=== PATIENT | female | born 1930 | race African-American/Black ===

== ENCOUNTER 2016-10-30 13:13 | Emergency (ER) | payer OTHER ==
--- NOTE | ~2016-10-30 | CR72 ---
[facility] A Service of [facility] & [facility] RADIOLOGY TEXT RESULTS PATIENT: CONNER SALEH LOCATION: [facility] : 31 UNIT #: [id number] AGE: [address]: Theo Maza DO SEX: F ORDER DR: [id number] [facility] [address] [place], [place] [address] [id number] E MR#: [id number] Acc #: [id number] NAME: CONNER SALEH. : 1930 SEX: F STUDY DATE/TIME: 10/30/2016 12:53 UNIT: [facility] ROOM: STUDY DESCRIPTION: CR Chest Single View Portable Attending Physician: Theo Maza D.O. Ordering Physician: Cory Watson M.D. Primary Care Physician: No Primary Care Physician MEDICAL IMAGING REPORT This report is preliminary unless electronic signature is present EXAM Portable chest. HISTORY Cough, wheeze and shortness of air for three days. COMPARISON 12/04/2013. FINDINGS Portable view of the chest was obtained. The heart size and vascularity are normal. The lungs are clear. The bones are unremarkable. IMPRESSION No active disease. Dictated by... Adolfo Wilson M.D. THIS IS AN ELECTRONICALLY VERIFIED REPORT Adolfo Wilson M.D. at 10/31/2016 3:07 PM FEL/gz TD: 10/31/2016 06:29 JOB #: [id number] MEDICAL IMAGING REPORT COPY
--- NOTE | ~2016-10-30 | EKG ---
PATIENT: CONNER SALEH UNIT #: [id number] Ventricular Rate: 53 BPM Atrial Rate: 53 BPM P-R Interval: 166 ms QRS Duration: 88 ms Q-T Interval: 466 ms QTC Calculation(Bezet): 437 ms P [place]: 29 degrees Calculated R [place]: -25 degrees Calculated T [place]: -24 degrees Diagnosis Line: Sinus bradycardia Diagnosis Line: Nonspecific T wave abnormality Diagnosis Line: Abnormal ECG Diagnosis Line: When compared with ECG of 04-DEC-2013 15:11, Diagnosis Line: Vent. rate has decreased BY 46 BPM Diagnosis Line: T wave inversion no longer evident in Anterior Diagnosis Line: leads Diagnosis Line: Confirmed by JEREMÍAS SCHAFER MD ([id number]) on Diagnosis Line: 10/30/2016 8:12:06 PM INTERPRETING : JOSE MIGUEL
[~2016-10-30 13:13] MED LIST: BAYER CHEWABLE81 MG PO; DONEPEZIL HCL10 MG PO; HYDROXYZINE HCL25 M1 PO; KCL PO; KEFLEX500 M1 PO; LASIX PO; LOVASTATIN20 MG PO; MAG-OX 400400 M1 PO; MATZIM LA360 MG PO; METOPROLOL TAR25 MG PO; NITROQUICK0.4 MG SL; PANTOPRAZOLE SO40 MG PO; PRINIVIL10 MG PO; TOVIAZ4 MG PO; ZOCOR10 MG PO
[2016-10-30 13:38] LABS: BASOPHIL% 0.5 % (0-2.5); EOSINOPHIL% 0.2 % (0.0-7.0); HEMOGLOBIN 14.1 gm/dL (12.0-16.0); LYMPHOCYTE# 0.9 X10e3 (1.0-3.5); MEAN CELL VOLUME 92.9 FL (83-96); MEAN CORPUSCULAR HEMOGLOBIN 30.5 PG (28-34); MEAN CORPUSCULAR HGB CONC 32.8 g/dL (30-36); MEAN PLATELET VOLUME 11.8 FL (6.5-11.5); MONOCYTE# 0.6 X10e3 (0-1.0); MONOCYTE% 11.6 % (3.0-12.0); NEUTROPHIL# 3.6 X10e3 (1.5-7.1); NEUTROPHIL% 69.7 % (40-75); PLATELET COUNT 61 X10e3 (140-420); RED BLOOD COUNT 4.63 X10e (3.90-5.30); RED CELL DISTRIBUTION WIDTH 13.3 % (11.0-15.5); WHITE BLOOD COUNT 5.2 X10e3 (4.0-10.5)
[2016-10-30 13:44] LABS: ALBUMIN SERUM 3.5 g/dL (3.5-5.0); BILIRUBIN, DIRECT 0.1 mg/dL (0.0-0.2); BILIRUBIN,TOTAL 1.1 mg/dL (0.2-2.0); BUN/CREATININE RATIO 14.28; CALCIUM SERUM 8.5 mg/dL (8.4-10.2); CREATININE SERUM 1.4 mg/dL (0.6-1.4); POTASSIUM 4.1 mmol/L (3.5-5.1)
[2016-10-30 13:46] LABS: DIFF IND YES
[2016-10-30 14:07] LABS: URINE SOURCE CLEAN CATCH
[2016-10-30 14:17] LABS: URINE APPEARANCE CLEAR; URINE BILIRUBIN NEG (NEG); URINE BLOOD 2+ (NEG); URINE COLOR YELLOW; URINE GLUCOSE NEG (NEG); URINE KETONE NEG (NEG); URINE LEUKOCYTE ESTERASE NEG (NEG); URINE NITRATE NEG (NEG); URINE PROTEIN NEG (NEG); URINE SPECIFIC GRAVITY 1.012 (1.003-1.035); URINE UROBILINOGEN 0.2 MG/DL (NEG)
[2016-10-30 14:20] LABS: CULTURE INDICATED? YES; U HYALINE CASTS AUWI 0-2 /[LPF]; URINE BACTERIA AUWI 1+ (NEGATIVE); URINE SQUAMOUS EPITHELIAL CELL NONE SEEN /[HPF]; UWBCS1 AUWI 0-2 (0-5)
[2016-10-30 14:47] LABS: POC - CKMB <1.0 ng/mL (0.0-7.9); POC - TROPONIN <0.05 ng/mL (<=0.05)
[2016-10-30 14:52] LABS: INFLUENZA A POS (NEG); INFLUENZA B NEG (NEG)
[2016-10-30 14:57] LABS: POC - CKMB 1.7 ng/mL (0.0-7.9); POC - TROPONIN <0.05 ng/mL (<=0.05)
[2016-10-30 15:11] LABS: ANISOCYTOSIS SL; PLATELET ESTIMATE DECREASED (NORMAL)
== END 2016-10-30 16:40 | disposition home or self-care (01) ==
LOC: CED 13:13
PROVIDERS: Emergency Medicine
DX: J10.1 Influenza due to other identified influenza virus with other respiratory manifestations (principal); J06.9 Acute upper respiratory infection, unspecified; I10 Essential (primary) hypertension; J44.9 Chronic obstructive pulmonary disease, unspecified; Z87.891 Personal history of nicotine dependence; Z79.899 Other long term (current) drug therapy
CPT/HCPCS: 36415; 71010; 80048; 80076; 81003; 82553; 84484; 85025; 87040; 87086; 87804; 93005; 94640; 96374; 99284; J2930

== ENCOUNTER → 2017-02-21 | Outpatient (CLI) | payer OTHER ==
[~2017-02-21] MED LIST changes: +AMIODARONE HCL200 MG PO; +ASPIRIN81 M2 PO; +LISINOPRIL PO; +LOPRESSOR PO; +MAG-OX 400400 MG PO; +MEMANTINE HCL10 MG PO; +MYRBETRIQ50 MG PO; +PATIENT'S PHARMACY; +REMERON PO; +VITAMIN D250000 UNIT PO; +ZOCOR PO
--- NOTE | ~2017-02-21 | MR18 ---
[facility] A Service of [facility] & [facility] RADIOLOGY TEXT RESULTS PATIENT: CONNER SALEH LOCATION: [facility] : 31 UNIT #: [id number] AGE: [address]: Jean Weaver MD SEX: F ORDER DR: [id number] [facility] [address] [place], [place] [address] [id number] O MR#: [id number] Acc #: [id number] NAME: CONNER SALEH : 1930 SEX: F STUDY DATE/TIME: 02/21/2017 14:16 UNIT: [facility] ROOM: STUDY DESCRIPTION: MR Brain Wo Contrast Attending Physician: Jean Weaver M.D. Referring Physician: Jean Weaver M.D. Ordering Physician: Jean Weaver M.D. Primary Care Physician: Jean Weaver M.D. MRI CENTER REPORT This report is preliminary unless electronic signature is present. EXAM MRI of the brain without HISTORY Dementia. No history of cancer or brain surgery. Patient has had dimension for 10 years. 86-year-old female. No other symptoms. History of hypertension. No trauma indicated. TECHNIQUE MRI of the brain was performed without contrast using routine 1.5-T imaging technique. COMPARISON STUDIES There is no prior imaging of the brain. FINDINGS There is a tiny focus of restricted diffusion seen at the posterior-superior left cerebellar hemisphere, most consistent with a tiny recent small vessel ischemic insult. It is a linear, about 7 mm in length and about 3-4 mm in width. There is no MRI evidence for intracranial hemorrhage. There is no appreciable mass effect. There is no extraaxial fluid collection. Motion-limiting sequences are utilized. The major intracranial flow voids are maintained. There is ipmnalie-ix-fxbjtc white matter signal abnormality, most confluent in the deep to periventricular white matter and there are apw-stvvqjas-dp-count small areas of signal abnormality in the bilateral basal ganglia and thalami which could be a prominent perivascular spaces and/or chronic lacunes. Brainstem signal intensity is essentially within normal limits. There is no intracranial mass effect or extraaxial fluid collection. There is no particular pattern of atrophy. 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 Please correlate further with the clinical STS. [facility] A Service of [facility] & [facility] RADIOLOGY TEXT RESULTS PATIENT: CONNER SALEH LOCATION: [facility] : 31 UNIT #: [id number] AGE: [address]: Jean Weaver MD SEX: F ORDER DR: findings as well. There are degenerative changes in the visualized upper cervical spine. Visualized paranasal sinuses and mastoid air cells are clear. There is a mucous retention cyst or polyp in the left maxillary antrum. IMPRESSION 1. There is a punctate focus of restricted diffusion seen at the periphery of the left superior-posterior cerebellar hemisphere, most likely a tiny recent small vessel insult. This is superimposed upon a background of fairly extensive, likely preexisting sequelae of small vessel disease, particularly given history of hypertension. 2. There is no intracranial mass effect or extraaxial fluid collection. There is nothing to suggest hydrocephalus. For reasons discussed above, most likely etiology of the patient's dementia is felt to be multi-infarct but the please correlate further with clinical findings and see full discussion above. STAT * RESULT Dictated by... Mare Walker M.D. THIS IS AN ELECTRONICALLY VERIFIED REPORT Mare Walker M.D. at 02/21/2017 5:34 PM BONIFACIO/frederick TD: 02/21/2017 16:13 JOB #: [id number] MRI CENTER REPORT Page 1 of 1 COPY
== END | disposition home or self-care (01) ==
LOC: CMRI 13:45
DX: F03.90 Unspecified dementia, unspecified severity, without behavioral disturbance, psychotic disturbance, mood disturbance, and anxiety (principal); R93.0 Abnormal findings on diagnostic imaging of skull and head, not elsewhere classified
CPT/HCPCS: 70551

== ENCOUNTER → 2017-03-09 | Outpatient (CLI) | payer OTHER ==
--- NOTE | ~2017-03-09 | US37 ---
[facility] A Service of [facility] & [facility] RADIOLOGY TEXT RESULTS PATIENT: CONNER SALEH LOCATION: [facility] : 31 UNIT #: [id number] AGE: [address]: Braxton Castro MD SEX: F ORDER DR: [id number] [place] [address] [place], [place] [address] [id number] O MR#: [id number] Acc #: [id number] NAME: CONNER SALEH. : 1930 SEX: F STUDY DATE/TIME: 03/09/2017 14:07 UNIT: [facility] ROOM: STUDY DESCRIPTION: US Carotid W/Doppler Bilateral Attending Physician: Braxton Castro Jr., M.D. Referring Physician: Braxton Castro Jr., M.D. Ordering Physician: Braxton Castro Jr., M.D. Primary Care Physician: Braxton Castro Jr., M.D. MEDICAL IMAGING REPORT This report is preliminary unless electronic signature is present EXAM Carotid duplex scan date of examination 03/09/2017 HISTORY Carotid stenosis. History of stroke. FINDINGS The right common carotid artery has a small amount of heterogeneous plaque which extends up in the proximal internal and external carotid arteries. Peak systolic velocity in the mid right internal carotid artery is 47 cm/sec with an end diastolic velocity of 23 cm/sec. The ICA/CCA ratio on the right is 1.0. Peak systolic velocity in the right external carotid artery is 32 cm/sec. The right vertebral artery is patent with antegrade flow. The left common carotid artery has a small amount of heterogeneous plaque which extends up in the proximal internal and external carotid arteries. Peak systolic velocity in the distal left internal carotid artery is 37 cm/sec with an end diastolic velocity of 18 cm/sec. The ICA/CCA ratio on the left is 0.7. Peak systolic velocity in the left external carotid artery is 21 cm/sec. The left vertebral artery is patent with antegrade flow. IMPRESSION Small amount of plaque, but no significant stenosis (less than 50%) in the internal and external carotid arteries bilaterally. Patent vertebral arteries bilaterally with antegrade flow. Dictated by... Carter Bowman M.D. [facility] A Service of [facility] & [facility] RADIOLOGY TEXT RESULTS PATIENT: CONNER SALEH LOCATION: [facility] #: [id number] : 31 UNIT #: [id number] AGE: [address]: Braxton Castro MD SEX: F ORDER DR: THIS IS AN ELECTRONICALLY VERIFIED REPORT Carter Bowman M.D. at 03/11/2017 7:28 AM SBS/rnr TD: 03/10/2017 01:12 JOB #: [id number] MEDICAL IMAGING REPORT Page 1 of 1 COPY
== END | disposition home or self-care (01) ==
LOC: CNIV 10:30
DX: R26.89 Other abnormalities of gait and mobility (principal); I65.23 Occlusion and stenosis of bilateral carotid arteries; Z86.73 Personal history of transient ischemic attack (TIA), and cerebral infarction without residual deficits
CPT/HCPCS: 93880

== ENCOUNTER 2017-03-10 11:02 | Inpatient (IN) | payer OTHER ==
[~2017-03-10] VITALS: Ht 152.4 cm; Wt 76.0 kg
--- NOTE | ~2017-03-10 | EKG ---
PATIENT: CONNER SALEH UNIT #: [id number] Ventricular Rate: 124 BPM Atrial Rate: 122 BPM QRS Duration: 106 ms Q-T Interval: 338 ms QTC Calculation(Bezet): 485 ms Calculated R [place]: -31 degrees Calculated T [place]: 155 degrees Diagnosis Line: Accelerated Junctional rhythm Diagnosis Line: Left axis deviation Diagnosis Line: Minimal voltage criteria for LVH, may be normal Diagnosis Line: variant Diagnosis Line: ST and T wave abnormality, consider lateral ischemia Diagnosis Line: Abnormal ECG Diagnosis Line: When compared with ECG of 30-OCT-2016 13:03, Diagnosis Line: Junctional rhythm has replaced Sinus rhythm Diagnosis Line: Vent. rate has increased BY 71 BPM Diagnosis Line: T wave inversion now evident in Lateral leads Diagnosis Line: Confirmed by SMITHA PHILLIPS MD ([id number]) on Diagnosis Line: 03/11/2017 7:32:43 AM INTERPRETING MD: JACQUELINE CHU
--- NOTE | ~2017-03-10 | HP ---
Unit #: [id number] #: [id number] Patient: CONNER SALEH [id number] [address] [place], [place] [address] [id number] I MR#: [id number] NAME: CONNER SALEH. ROOM: 557 Age: 86 Sex: F Admission Date: 03/10/2017 : 1930 Attending Physician: Dalia Medel M.D. Primary Care Physician: Jean Weaver M.D. HISTORY AND PHYSICAL HISTORY OF PRESENT ILLNESS This is an 86-year-old female who is known to have dementia and is a poor historian. Information has been obtained from the patient and her friend who cares for her who is also a poor historian. According to the patient, she has a report of loss of appetite for two to three days where she has no desire to eat. Her friend who cares for her states that she went to see her primary care physician and tests were ordered including an MRI. She also was ordered to have an echocardiogram. While in the echocardiogram, she was noted to have an elevated heart rate and was sent to the emergency room for evaluation. On arrival, an EKG was obtained and she was found to have an accelerated heart rate of 120 beats per minute. Upon review of the EKG, she was noted to have possible paroxysmal supraventricular tachycardia versus atrial fibrillation. She was hypotensive with blood pressure of 94/64 mmHg that was treated with IV saline bolus. The patient said she has no symptoms of chest pain, dyspnea, palpitations, or dizziness. She apparently lives a sedentary lifestyle and only walks around the house on occasion. She mostly sits and watches TV all day. Her friend states she does not drink enough fluids. Her electrolytes are within normal limits. Creatinine is 1.6. In October 2013, creatinine was 1.4. TSH is normal. She has no enzyme elevation to suggest an acute event. She has had no prior cardiac history or testing. She was seen by our group in 2013 for atrial tachycardia. PAST MEDICAL HISTORY 1. A 2D echocardiogram on December 05, 2013, shows an ejection fraction of 60% with mild mitral regurgitation, mild tricuspid regurgitation, and mild aortic regurgitation. 2. Atrial tachycardia. 3. Hypertension. 4. Hyperlipidemia. 5. Gastroesophageal reflux disease. 6. Osteoarthritis. 7. Former smoker. 8. Reformed ETOH abuse. PAST SURGICAL HISTORY Appendectomy. SOCIAL HISTORY The patient lives with and is cared for by her friend of 40 years. She lives a sedentary lifestyle. She states she quit smoking in 1963. She apparently has a remote history of alcohol use. No illicit drug use. Unit #: [id number] #: [id number] Patient: CONNER SALEH FAMILY HISTORY Noncontributory. ALLERGIES No known drug allergies. HOME MEDICATIONS 1. Aspirin 81 mg daily. 2. Aricept 10 mg daily. 3. Lisinopril 10 mg daily. 4. Magnesium oxide 400 mg b.i.d. 5. Namenda 10 mg daily. 6. Lopressor 12.5 mg b.i.d. 7. Remeron 7.5 mg at bedtime. 8. Myrbetriq 50 mg daily. 9. Potassium chloride 20 mEq daily. 10. Zocor 10 mg daily. 11. Vitamin D2 at 50,000 units weekly. 12. Furosemide 40 mg daily. REVIEW OF SYSTEMS CONSTITUTIONAL: Negative for fever or chills. Has no weight gain or weight loss. Decrease in appetite. HEENT: No headache, hearing or vision changes, or difficulty with swallowing. Denies dizziness. CARDIOVASCULAR: No symptoms of angina. Denies palpitations. No paroxysmal nocturnal dyspnea or orthopnea. No syncope or near syncope. RESPIRATORY: Negative for dyspnea, cough, or hemoptysis. GASTROINTESTINAL: No abdominal pain, nausea, or vomiting. No constipation or melena. EXTREMITIES: Negative for lower extremity edema. PHYSICAL EXAMINATION VITAL SIGNS: Blood pressure 100/74, heart rate 128, and temperature 97.9. GENERAL: This is a pleasant, mildly obese, 86-year-old female who is in no acute respiratory distress. NEUROLOGIC: She is awake, alert, and oriented. No focal weakness. NECK: Trachea is midline. No thyromegaly or lymphadenopathy. No jugular venous distention. HEART: S1 and S2 heart sounds are normal. No murmurs, rubs, or clicks. Regular rate and rhythm that is tachycardic. LUNGS: Clear without rales, rhonchi, or wheezing. ABDOMEN: Soft and nontender with bowel sounds present. EXTREMITIES: Without leg edema. SKIN: Warm and dry. DIAGNOSTIC STUDIES LABORATORY: Glucose 120, BUN 24, creatinine 1.6, sodium 143, potassium 4, and magnesium 2. TSH 1.36. CK-MB 3.5 and troponin less than 0.05. White count 8, hemoglobin 14.7, hematocrit 46.4, and platelet count is 122,000. IMAGING: MRI of the brain on February 21 shows a tiny recent small vessel insult to the left superior-posterior cerebellar hemisphere. Ultrasound of bilateral carotids reveals a small amount of plaque but no significant stenosis (less than 50%) in the internal and external carotid arteries bilaterally. Vertebral arteries are patent bilaterally. Unit #: [id number] #: [id number] Patient: CONNER SALEH CARDIOLOGY: EKG shows paroxysmal supraventricular tachycardia, rate 125 beats per minute. There is T wave inversion in lateral leads V5, V6, I, and AVL. Left axis deviation. IMPRESSION 1. Paroxysmal supraventricular tachycardia versus atrial fibrillation with rapid ventricular response. 2. Preserved left ventricular systolic function with an ejection fraction of 60%. 3. Hypotension with history of hypertension. 4. Hyperlipidemia. 5. Dementia. 6. Chronic kidney disease stage 3. PLAN 1. The patient's EKG denotes paroxysmal supraventricular tachycardia versus atrial fibrillation with rapid ventricular response. Will start the patient on amiodarone drip to attempt to convert to normal sinus rhythm. 2. Discontinue lisinopril and beta lester because of hypotension. 3. Continue to monitor serial cardiac enzymes and troponin to rule out myocardial infarction. 4. A 2D echocardiogram is done to reevaluate for left ventricular systolic dysfunction and for valvular heart disease. 5. Start the patient on IV fluids because of hypotension. 6. Lipid profile will be obtained. 7. TSH is normal. 8. Monitor renal function. 9. Will have Physical Therapy and Occupational Therapy to see the patient. 1. Dictated by Charles Jones A.P.R.N. for Tiago Dutta TD: 03/10/2017 18:12 JOB #: [id number] HISTORY AND PHYSICAL Page 1 of 1 X Charles Jones APRN HISTORY AND PHYSICAL
--- NOTE | ~2017-03-10 | EKG ---
PATIENT: CONNER SALEH UNIT #: [id number] Ventricular Rate: 57 BPM Atrial Rate: 57 BPM P-R Interval: 202 ms QRS Duration: 96 ms Q-T Interval: 524 ms QTC Calculation(Bezet): 510 ms P [place]: 45 degrees Calculated R [place]: -16 degrees Calculated T [place]: -22 degrees Diagnosis Line: Sinus bradycardia Diagnosis Line: Nonspecific T wave abnormality Diagnosis Line: Prolonged QT Diagnosis Line: Abnormal ECG Diagnosis Line: When compared with ECG of 10-MAR-2017 11:41, Diagnosis Line: (unconfirmed) Diagnosis Line: Rhythm now sinus Diagnosis Line: Vent. rate has decreased BY 67 BPM Diagnosis Line: T wave inversion no longer evident in Lateral Diagnosis Line: leads Diagnosis Line: Confirmed by JEREMÍAS SCHAFER MD ([id number]) on Diagnosis Line: 03/11/2017 8:21:00 AM INTERPRETING MD: JOSE MIGUEL
--- NOTE | ~2017-03-10 | DS ---
Unit #: [id number] #: [id number] Patient: CONNER SALEH [id number] [address] [place], [place] [address] [id number] I MR#: [id number] NAME: CONNER SALEH. ROOM: 55 Age: 86 Sex: F Admission Date: 03/10/2017 : 1930 Discharge Date: 03/11/2017 Attending Physician: Roma Elliott M.D. Primary Care Physician: Jean Weaver M.D. DISCHARGE SUMMARY DISCHARGE DIAGNOSES 1. Paroxysmal supraventricular tachycardia converted to normal sinus rhythm. 2. 2D echocardiogram on 03/10/2017 showed an ejection fraction of 55% to 60% with mild concentric left ventricular hypertrophy. Bubble study shows no shunt across the interatrial septum, mild aortic regurgitation, hvfg-te-ecnayfmy mitral regurgitation, gqxr-eq-mbcgweep tricuspid regurgitation, mild pulmonic valvular regurgitation. Right ventricular systolic pressure of 23 mmHg. (The patient was tachycardic on examination. 3. Hypotension, resolved. 4. History of hypertension. 5. Hyperlipidemia. 6. Dementia. DISCHARGE MEDICATIONS Aspirin 81 mg daily, potassium chloride 20 mEq daily, vitamin D 50,000 units every week, Myrbetriq 50 mg daily, MAGnesium-Oxide 400 mg b.i.d., Remeron 7.5 mg q.h.s., Namenda 10 mg daily, Aricept 10 mg daily, simvastatin 10 mg daily, amiodarone 200 mg p.o. b.i.d. x7 days then 200 mg daily. HOSPITAL COURSE This is an 86-year-old female, who was brought into the emergency room after being found to have a rapid heart rate while having an echocardiogram done. She had EKG that was felt to be paroxysmal supraventricular tachycardia versus atrial fibrillation with rapid ventricular response. She was started on amiodarone drip. She was hypotensive with a blood pressure in the 90s. Lisinopril and carvedilol were discontinued. She was ruled out for an acute myocardial infarction with negative cardiac enzymes and troponin. Her TSH was normal at 1.36. She denied any symptoms of angina. Her only complaint was loss of appetite. IV fluids were started. The patient converted to normal sinus rhythm. Repeat EKG showed no acute ischemic changes. IV fluids were discontinued. The patient was allowed to ambulate in the hallway with physical therapy and they felt that she was at her baseline. They suggested that she use a rolling walker at home, which will be provided prior to discharge. Her blood pressure improved. She is stable for discharge today. PHYSICAL EXAMINATION VITAL SIGNS: Blood pressure 111/71, heart rate 57. Unit #: [id number] #: [id number] Patient: CONNER SALEH CHEST: Clear to auscultation. HEART: S1, S2. Regular rate and rhythm. ABDOMEN: Soft and nontender with bowel sounds are present. EXTREMITIES: Without leg edema. DIAGNOSTIC STUDIES LABORATORY RESULTS: Troponin 0.03. Cholesterol 150, triglycerides 116, LDL 82, HDL 45. TSH 1.36. White count 9.9, hemoglobin 13.7, hematocrit 43.3, and platelet count 111. CARDIOVASCULAR STUDIES: EKG shows sinus bradycardia rate of 57 beats per minute with no acute ischemic changes. QTc 510 msec. DISCHARGE INSTRUCTIONS 1. The patient will be discharged home today. 2. Follow up with Dr. De on 04/28/2017 at 2 p.m. Follow up with primary care physician in 1 week. 3. The patient will take amiodarone 200 mg b.i.d. for week and then 200 mg daily. This has been discussed with the patient's significant other in detail. Amiodarone drip was discontinued. 4. The patient has been provided a rolling walker for home use for the patient's safety. 5. Lisinopril and metoprolol have been discontinued, because of hypotension which has improved. Dictated by... Yamila Mensah/lorelei TD: 03/14/2017 01:04 JOB #: [id number] CC: Tiago Schwab M.D. DISCHARGE SUMMARY Page 1 of 1 X Charles Jones APRN X DISCHARGE SUMMARY
--- NOTE | ~2017-03-10 | CR72 ---
[facility] A Service of [facility] & [facility] RADIOLOGY TEXT RESULTS PATIENT: CONNER SALEH LOCATION: [place] [address] : [birth year] UNIT #: [id number] AGE: [address]: Roma Elliott MD SEX: F ORDER DR: [id number] [facility] [address] [place], [place] [address] [id number] I MR#: [id number] Acc #: [id number] NAME: CONNER SALEH. : 1930 SEX: F [facility]UD[facility] DATE[facility]TIME: [facility] [place] STUDY DESCRIPTION: CR Chest Single View Portable Attending Physician: Dalia Medel M.D. Ordering Physician: Williams Zaragoza M.D. Primary Care Physician: Jean Weaver M.D. MEDICAL IMAGING REPORT This report is preliminary unless electronic signature is present EXAM Chest portable 03/10/2017 1137 hours HISTORY 86-year-old woman with rapid heart rate during endoscopy today, shortness of air today. History of hypertension. COMPARISON 10/30/2016 FINDINGS Portable upright chest demonstrates stable mild cardiomegaly and tortuous atherosclerotic aorta. The lungs are well expanded and clear of acute densities. There is no pleural effusion or pneumothorax. Stable degenerative changes of the shoulders. IMPRESSION Stable mild cardiomegaly and tortuous aorta. The pulmonary vascularity is normal. The lungs remain clear. There is no effusion or pneumothorax. Dictated by... Paula Tierney M.D. THIS IS AN ELECTRONICALLY VERIFIED REPORT Paual Tierney M.D. at 03/11/2017 8:53 AM SMM/linwood TD: 03/10/2017 18:04 JOB #: [id number] MEDICAL IMAGING REPORT Page 1 of 1 COPY
[~2017-03-10 11:02] MED LIST changes: -AMIODARONE HCL200 MG PO; -ASPIRIN81 M2 PO; -LISINOPRIL PO; -LOPRESSOR PO; -MAG-OX 400400 MG PO; -MEMANTINE HCL10 MG PO; -MYRBETRIQ50 MG PO; -PATIENT'S PHARMACY; -REMERON PO; -VITAMIN D250000 UNIT PO; -ZOCOR PO
[2017-03-10] MEDS ORDERED: MEMANTINE HCL10 MG PO (11:40)
[2017-03-10] MEDS ORDERED: ASPIRIN81 M2 PO (11:40)
[2017-03-10] MEDS ORDERED: LISINOPRIL PO (11:40)
[2017-03-10] MEDS ORDERED: DONEPEZIL HCL10 MG PO (11:40)
[2017-03-10] MEDS ORDERED: MAG-OX 400400 MG PO (11:40)
[2017-03-10] MEDS ORDERED: REMERON PO (11:42)
[2017-03-10] MEDS ORDERED: LOPRESSOR PO (11:42)
[2017-03-10] MEDS ORDERED: ZOCOR PO (11:42)
[2017-03-10] MEDS ORDERED: MYRBETRIQ50 MG PO (11:42)
[2017-03-10] MEDS ORDERED: KCL PO (11:42)
[2017-03-10] MEDS ORDERED: VITAMIN D250000 UNIT PO (11:43)
[2017-03-10] MEDS ORDERED: PATIENT'S PHARMACY (11:44)
[2017-03-10 11:50] LABS: POC - CKMB 3.8 ng/mL (0.0-7.9); POC - TROPONIN <0.05 ng/mL (<=0.05)
[2017-03-10 11:51] LABS: BASOPHIL# 0.1 X10e3 (0-0.3); BASOPHIL% 0.6 % (0-2.5); EOSINOPHIL# 0.2 X10e3 (0-0.7); EOSINOPHIL% 2.3 % (0.0-7.0); HEMATOCRIT 46.4 % (35.0-45.0); HEMOGLOBIN 14.7 gm/dL (12.0-16.0); LYMPHOCYTE# 1.3 X10e3 (1.0-3.5); LYMPHOCYTE% 16.7 % (17.0-45.0); MEAN CELL VOLUME 93.7 FL (83-96); MEAN CORPUSCULAR HEMOGLOBIN 29.7 PG (28-34); MEAN CORPUSCULAR HGB CONC 31.7 g/dL (30-36); MEAN PLATELET VOLUME 11.7 FL (6.5-11.5); MONOCYTE# 0.6 X10e3 (0-1.0); MONOCYTE% 7.4 % (3.0-12.0); NEUTROPHIL# 5.9 X10e3 (1.5-7.1); PLATELET COUNT 122 X10e3 (140-420); RED BLOOD COUNT 4.95 X10e (3.90-5.30); RED CELL DISTRIBUTION WIDTH 13.6 % (11.0-15.5)
[2017-03-10 11:54] LABS: DIFF IND NO
[2017-03-10 12:04] LABS: PARTIAL THROMBOPLASTIN TIME 26.2 SECONDS (23.5-31.3)
[2017-03-10 12:11] LABS: CALCIUM SERUM 9.1 mg/dL (8.4-10.2); CREATININE SERUM 1.6 mg/dL (0.6-1.4); GLOM FILT RATE Estimated 33.7 mL/min (>60); MAGNESIUM 2.3 mg/dL (1.6-3.0)
[2017-03-10 13:51] LABS: POC - CKMB 3.5 ng/mL (0.0-7.9); POC - TROPONIN <0.05 ng/mL (<=0.05)
[2017-03-10 19:49] LABS: %MB 5.1 % (0.0-4.0)
[2017-03-11 03:18] LABS: %MB 6.1 % (0.0-4.0); MB 6.6 ng/ml
[2017-03-11 08:01] LABS: HEMATOCRIT 43.3 % (35.0-45.0); HEMOGLOBIN 13.7 gm/dL (12.0-16.0); MEAN CELL VOLUME 94.1 FL (83-96); MEAN CORPUSCULAR HEMOGLOBIN 29.8 PG (28-34); MEAN CORPUSCULAR HGB CONC 31.7 g/dL (30-36); MEAN PLATELET VOLUME 10.6 FL (6.5-11.5); RED BLOOD COUNT 4.6 X10e (3.90-5.30); WHITE BLOOD COUNT 9.9 X10e3 (4.0-10.5)
[2017-03-11 09:07] LABS: BUN/CREATININE RATIO 16.36; CALCIUM SERUM 8.4 mg/dL (8.4-10.2); CREATININE SERUM 1.1 mg/dL (0.6-1.4); MAGNESIUM 2.3 mg/dL (1.6-3.0); POTASSIUM 4.4 mmol/L (3.5-5.1)
[2017-03-11 09:20] LABS: %MB 3.6 % (0.0-4.0); MB 6.9 ng/ml
[2017-03-11] MEDS ORDERED: AMIODARONE HCL200 MG PO ×2 (11:49→11:50)
== END 2017-03-11 12:56 | disposition home health service (06) | DRG 308 ==
LOC: CED 11:02 → CEDOF 13:40 → CED 15:48 → CEDOF 15:48 → C5B 18:04
PROVIDERS: Emergency Medicine; Internal Medicine Cardiovascular Disease
PROC: B246YZZ Ultrasonography of Right and Left Heart using Other Contrast (ICD-10-PCS; principal; 2017-03-10)
DX: I47.1 Supraventricular tachycardia (principal); I63.8 Other cerebral infarction; I95.9 Hypotension, unspecified; I48.91 Unspecified atrial fibrillation; N18.3 Chronic kidney disease, stage 3 (moderate); F01.50 Vascular dementia, unspecified severity, without behavioral disturbance, psychotic disturbance, mood disturbance, and anxiety; I08.3 Combined rheumatic disorders of mitral, aortic and tricuspid valves; E78.5 Hyperlipidemia, unspecified; I12.9 Hypertensive chronic kidney disease with stage 1 through stage 4 chronic kidney disease, or unspecified chronic kidney disease; K21.9 Gastro-esophageal reflux disease without esophagitis; Z87.891 Personal history of nicotine dependence; F10.21 Alcohol dependence, in remission; M19.90 Unspecified osteoarthritis, unspecified site; Z90.49 Acquired absence of other specified parts of digestive tract; Z79.82 Long term (current) use of aspirin
CPT/HCPCS: 36415; 71010; 80048; 80061; 82550; 82553; 83735; 84443; 84484; 85025; 85027; 85610; 85730; 93005; 96360; 97162; 99285; G8978-GP; G8979-GP; G8980-GP; J0282; J1650

== ENCOUNTER → 2017-03-10 | Outpatient (CLI) | payer OTHER | END | disposition home or self-care (01) | LOC: CECH 09:49 | DX: I63.8 Other cerebral infarction (principal); F01.50 Vascular dementia, unspecified severity, without behavioral disturbance, psychotic disturbance, mood disturbance, and anxiety; I47.1 Supraventricular tachycardia; I51.7 Cardiomegaly; I35.1 Nonrheumatic aortic (valve) insufficiency; I34.0 Nonrheumatic mitral (valve) insufficiency; I36.1 Nonrheumatic tricuspid (valve) insufficiency; I37.1 Nonrheumatic pulmonary valve insufficiency | CPT/HCPCS: 93306 ==